=== PATIENT | male | born 1965 | race African-American/Black ===

== ENCOUNTER 2016-11-19 15:15 | Emergency (ER) ==
[2016-11-19] MEDS ORDERED: TORADOL IM ONE (15:47)
[2016-11-19] MEDS ORDERED: CATAPRES PO ONE (15:48)
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
[2016-11-19 16:49] VITALS: BP 110/45
--- NOTE | 2016-11-19 17:18 | EKG Report ---
Test Performed on : 11/19/2016 3:32:26 PM Test Reason : tachycardia Blood Pressure : / mmHG Vent. Rate : 105 BPM Atrial Rate : 105 BPM P-R Int : 158 ms QRS Dur : 098 ms QT Int : 352 ms P-R-T Axes : 066 072 -06 degrees QTc Int : 465 ms Sinus tachycardia. Possible Left atrial enlargement Left ventricular hypertrophy Abnormal QRS-T angle, consider primary T wave abnormality Abnormal ECG When compared with ECG of 26-JAN-2016 06:40, SD interval has decreased Vent. rate has increased BY 59 BPM QT has lengthened Unconfirmed Result
== END 2016-11-19 16:55 | disposition home or self-care (01) ==
LOC: P.ED 15:15
DX: R51 Headache (principal); I10 Essential (primary) hypertension; F17.210 Nicotine dependence, cigarettes, uncomplicated; Z71.6 Tobacco abuse counseling; R94.31 Abnormal electrocardiogram [ECG] [EKG]; Z79.899 Other long term (current) drug therapy; Z79.52 Long term (current) use of systemic steroids
CPT/HCPCS: 93005; 96372; J1885

== ENCOUNTER 2017-05-30 10:04 | Inpatient (IN) ==
[2017-05-30] MEDS ORDERED: APRESOLINE IV ONE (10:51)
[2017-05-30] MEDS ORDERED: ZOFRAN IV PRN (10:54)
[2017-05-30] MEDS ORDERED: TYLENOL PO PRN (10:54)
[2017-05-30 11:04] LABS: INR 1.03; PROTIME 10.8 Seconds (9.2-11.7); PTT 26.2 Seconds (22.0-36.0)
[2017-05-30 11:13] LABS: BASO% 0.3 % (0.0-0.8); EOS# 0.06 X1000 (0.0-0.7); EOS% 0.7 % (0.0-10.0); HEMATOCRIT 34.1 % (42.0-52.0); HEMOGLOBIN 11.5 g/dL (14.0-18.0); IMM GRAN# 0.02 X1000 (0.0-0.04); IMM GRAN% 0.2 % (0.0-0.5); LYMPH% 26.9 % (20.5-51.1); MANUAL DIFF NEEDED? YES; MCH 35.5 PG (27-31); MCHC 33.7 g/dL (33-37); MCV 105.2 FL (81-99); MONO# 0.64 X1000 (0.11-0.59); MONO% 7.2 % (1.7-9.3); MPV 9.2 FL (7.4-10.4); NEUT% 64.7 % (42.2-75.2); PLT 364 X1000 (130-400); RBC 3.24 XMIL (4.7-6.1)
[2017-05-30 11:24] LABS: AGAP 14; BUN 14 mg/dL (8-22); CALCIUM 9.8 mg/dL (8.8-10.2); CHLORIDE 102 mmol/L (98-107); COSMO 281; POTASSIUM 3.3 mmol/L (3.5-5.1); SODIUM 141 mmol/L (136-145); TCO2 25 mmol/L (25-35)
[2017-05-30] MEDS ORDERED: MORPHINE IV ONE (11:31)
[2017-05-30 11:41] LABS: LYMPHS 26 % (21-51); MONO 2 % (1-9)
[2017-05-30 12:10] LABS: HEMOGLOBIN A1C 5.2 % (4.8-6.0)
[2017-05-30 12:28] LABS: URINE CULTURE NEEDED? NO; URINE MICRO REVIEW NEEDED? NO; URINE SOURCE CLEAN CATCH
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
[2017-05-30 12:33] LABS: BILIRUBIN URINE NEGATIVE (NEGATIVE); BLOOD URINE SMALL (NEGATIVE); COLOR STRAW; GLUCOSE URINE NEGATIVE (NEGATIVE); LEUKOCYTES URINE NEGATIVE (NEGATIVE); NITRITE URINE NEGATIVE (NEGATIVE); PROTEIN URINE NEGATIVE (NEGATIVE); SP GRAVITY URINE 1.005; TURBIDITY URINE CLEAR (CLEAR); UR EPITHELIAL CELLS <10 /HPF (<10); URINE BACTERIA NEGATIVE /HPF; URINE RBC <10 /HPF (<10); URINE WBC <10 /HPF (<10); UROBILINOGEN URINE NORMAL (NORMAL)
[2017-05-30] MEDS: NS 1,000 ML IV SCH (12:34)
--- NOTE | 2017-05-30 13:04 | EKG Report ---
Test Performed on : 05/30/2017 11:00:21 AM Test Reason : chest pain Blood Pressure : / mmHG Vent. Rate : 056 BPM Atrial Rate : 056 BPM P-R Int : 194 ms QRS Dur : 104 ms QT Int : 442 ms P-R-T Axes : 063 046 032 degrees QTc Int : 426 ms Sinus bradycardia. Voltage criteria for left ventricular hypertrophy Abnormal ECG When compared with ECG of 11-FEB-2017 15:21, No significant change was found Confirmed by Philipp Cooper MD ([id number]) on 05/30/2017 8:07:23 PM
--- NOTE | 2017-05-30 14:35 | Diag Imaging Result Doc PS360 ---
EXAM: CHEST-2 VIEWS - 05/30/2017 HISTORY: r/o pna TECHNIQUE: AP and lateral chest COMPARISON: 02/11/2017 FINDINGS: Allowing for the AP projection of the frontal view, heart size appears in the upper range of normal. The lungs appear clear. There is no consolidation, pleural effusion, or pneumothorax identified. IMPRESSION: No evidence of acute disease. Electronically signed by London Tamez 05/30/2017 2:32 PM
[2017-05-30] MEDS: CATAPRES PO SCH ×2 (18:13)
[2017-05-30] MEDS: BACTROBAN CREAM TOP SCH ×2 (18:13→18:14)
[2017-05-30] MEDS: MORPHINE IV PRN ×2 (18:16→22:34)
[2017-05-30] MEDS: NORCO-5 PO PRN (19:25)
[2017-05-30] MEDS: NORVASC PO SCH (22:35)
[2017-05-30] MEDS: COREG PO SCH (22:35)
[2017-05-31] MEDS: NORCO-5 PO PRN ×4 (02:08→22:16)
[2017-05-31] MEDS: MORPHINE IV PRN ×3 (02:52→23:07)
[2017-05-31] MEDS: APRESOLINE IV PRN ×3 (02:52→18:03)
[2017-05-31] MEDS: NS 1,000 ML IV SCH (06:34)
[2017-05-31] MEDS: PRILOSEC PO SCH (06:35)
[2017-05-31 06:40] LABS: MANUAL DIFF NEEDED? NO
[2017-05-31 06:42] LABS: BASO% 0.2 % (0.0-0.8); EOS% 1.2 % (0.0-10.0); HEMATOCRIT 33.9 % (42.0-52.0); HEMOGLOBIN 11.5 g/dL (14.0-18.0); LYMPH# 2.81 X1000 (1.2-3.4); LYMPH% 33.2 % (20.5-51.1); MCH 35.5 PG (27-31); MCHC 33.9 g/dL (33-37); MCV 104.6 FL (81-99); MONO# 0.85 X1000 (0.11-0.59); MPV 9.4 FL (7.4-10.4); NEUT% 55.4 % (42.2-75.2); PLT 356 X1000 (130-400); RBC 3.24 XMIL (4.7-6.1)
[2017-05-31 07:00] LABS: AGAP 15; ALBUMIN 3.5 g/dL (3.5-5.0); ALKALINE PHOSPHATASE 70 U/L (32-122); BUN 12 mg/dL (8-22); CALCIUM 9.5 mg/dL (8.8-10.2); CHLORIDE 101 mmol/L (98-107); COSMO 281; GOT 27 U/L (10-34); GPT 47 U/L (10-44); MAGNESIUM 1.7 mg/dL (1.5-2.7); POTASSIUM 3.3 mmol/L (3.5-5.1); SODIUM 141 mmol/L (136-145); TCO2 25 mmol/L (25-35); TOTAL BILIRUBIN 0.38 mg/dL (0.20-1.00); TOTAL PROTEIN 8.3 g/dL (6.3-8.3)
--- NOTE | 2017-05-31 09:09 | Diag Imaging Result Doc PS360 ---
EXAM: CT ANGIOGRAM/AORTA W/RUNOFF HISTORY: peripheral vascular disease TECHNIQUE: CT angiography of the abdomen, pelvis with runoff and 3-D MIPS with low radiation dose applied. COMMENT: There is no evidence of acute disease in the visualized portion of the chest. There is mild constipation. There are no abnormal fluid collections in the abdomen or pelvis. There is no evidence of bowel obstruction or appendicitis. There are no gallstones. There is no evidence of hydronephrosis. There is extensive atherosclerotic change in the abdominal aorta and iliac arteries. There is no evidence of abdominal aortic aneurysm. The maximum AP diameter of the abdominal aorta is 2.4 cm. The mesenteric arteries are patent. There may be stenosis of the superior mesenteric artery several centimeters from the ostium, however this this appearance may be due to motion artifact. There is irregular plaque formation in both external iliac arteries without definite significant stenosis. Both superficial femoral and popliteal arteries are patent. Contrast opacification of the smaller vessels in the calves is somewhat suboptimal however there is no apparent occlusion on either side above the level of the ankle. IMPRESSION: Diffuse atheromatous disease without evidence of significant stenosis. Electronically signed by Bryan Brennan 05/31/2017 9:07 AM
[2017-05-31] MEDS: CATAPRES PO SCH ×3 (09:10→17:59)
[2017-05-31] MEDS: COREG PO SCH ×2 (09:10→22:16)
[2017-05-31] MEDS: PRINIVIL PO SCH (09:10)
[2017-05-31] MEDS: BACTROBAN CREAM TOP SCH ×3 (09:14→17:59)
[2017-05-31] MEDS ORDERED: KLOR-CON PO ONE (11:17)
[2017-05-31] MEDS: LOVENOX SUBQ SCH (12:11)
[2017-05-31] MEDS: NICODERM PATCH TD SCH (13:22)
--- NOTE | 2017-05-31 13:31 | PROGRESS NOTE ---
DATE: 05/31/2017 SUBJECTIVE: Patient reported still having pain in the right 5th toe. Denies any fever or chills. OBJECTIVE: Vital Signs: Temperature 98.6 degrees, heart rate 95, respiratory 16, blood pressure 156/89, O2 saturation 99% on room air. General Examination: This is a 51-year-old male, lying in bed, in no acute distress. HEENT: Head is normocephalic, atraumatic. Neck: Supple. No JVD noted. No carotid bruits. Cardiovascular: S1, S2 heard. No murmurs, gallops, or rubs. Regular rate and rhythm. Respiratory: Clear bilaterally to auscultation. No work of breathing or using accessory muscles. Abdomen: Soft, nontender to palpation. Bowel sounds present. No organomegaly. Extremities: There is an ischemic right 5th toe. There is also a posterior tibial pulse there. In the left lower extremities pulse is noted in the posterior tibial area. Dorsalis pulse also present. No swelling. No clubbing. Neurological: Patient alert and oriented x3. Moves 4 extremities. LABORATORY DATA: CBC is unremarkable. BMP unremarkable except potassium 3.3 with normal troponins and ProBNP to 41. ASSESSMENT AND PLAN: 1. Ischemic right 5th toe with necrosis and dry gangrene. Dr. Quintero is following this patient. They have ordered a CTA with which basically did not show any critical stenosis. At this point, we are going to continue with Bactroban topically and will see what Dr. Quintero has to say regarding the management of this patient. 2. Hypertension. The blood pressure has been really high and that was because the patient was not taking his medication. All of them have been restarted so by now blood pressure is definitely much better with 140s to 150s systolic blood pressure. We will continue with the same management. 3. GI prophylaxis with Protonix. 4. Deep vein thrombosis prophylaxis with Lovenox. cc: Mohit Ponce MD
[2017-05-31] MEDS: NORVASC PO SCH (22:16)
[2017-06-01] MEDS: NORCO-5 PO PRN ×5 (03:46→21:47)
[2017-06-01] MEDS: MORPHINE IV PRN ×4 (03:46→18:22)
[2017-06-01 06:14] LABS: BASO% 0.1 % (0.0-0.8); EOS# 0.05 X1000 (0.0-0.7); EOS% 0.6 % (0.0-10.0); HEMATOCRIT 32.7 % (42.0-52.0); HEMOGLOBIN 10.7 g/dL (14.0-18.0); LYMPH# 2.59 X1000 (1.2-3.4); LYMPH% 32.1 % (20.5-51.1); MANUAL DIFF NEEDED? YES; MCH 34.6 PG (27-31); MCHC 32.7 g/dL (33-37); MCV 105.8 FL (81-99); MONO# 0.79 X1000 (0.11-0.59); MONO% 9.8 % (1.7-9.3); MPV 9.2 FL (7.4-10.4); NEUT% 57.4 % (42.2-75.2); PLT 339 X1000 (130-400); RBC 3.09 XMIL (4.7-6.1)
[2017-06-01] MEDS: PRILOSEC PO SCH (06:20)
[2017-06-01 06:55] LABS: AGAP 16; BUN 16 mg/dL (8-22); CALCIUM 8.9 mg/dL (8.8-10.2); CHLORIDE 102 mmol/L (98-107); COSMO 282; POTASSIUM 3.7 mmol/L (3.5-5.1); SODIUM 141 mmol/L (136-145); TCO2 23 mmol/L (25-35)
[2017-06-01 07:00] LABS: LYMPHS 32 % (21-51); MONO 8 % (1-9)
[2017-06-01] MEDS: CATAPRES PO SCH ×3 (08:21→17:33)
[2017-06-01] MEDS: COREG PO SCH ×2 (08:21→21:21)
[2017-06-01] MEDS: PRINIVIL PO SCH (08:21)
--- NOTE | 2017-06-01 09:14 | PROGRESS NOTE ---
DATE: 05/31/2017 SUBJECTIVE: He is sleeping this morning, but no events per the nurses overnight. OBJECTIVE: No fevers. No tachycardia. Blood pressure remains high at 193/81, but is down to as low as 152 overnight. His right foot has a dressing in place with no cellulitis extending up his foot, and he is sleeping comfortably. LABORATORY DATA: White count is 8, hematocrit 33, creatinine 0.9. Troponins have been negative x2. Albumin 3.5. BNP was 241. ASSESSMENT AND PLAN: This is a 51-year-old male with right lower extremity peripheral vascular disease. We will obtain a CT angiogram today to evaluate for reversible lesion here and what he needs going forward. He does have dry necrosis of his right 5th toe, with no signs of infection and severe claudications, if not ischemic rest pain at times. Continue to follow along and make surgical plans after his CT angiogram going forward. This may be performed this admission versus schedule as an outpatient. Mostly depending on patient's preference. cc: Antonio Quintero MD
[2017-06-01] MEDS: NICODERM PATCH TD SCH (09:51)
[2017-06-01] MEDS: BACTROBAN CREAM TOP SCH ×3 (09:52→17:09)
[2017-06-01] MEDS: LOVENOX SUBQ SCH (10:13)
--- NOTE | 2017-06-01 11:04 | PROGRESS NOTE ---
DATE: 06/01/2017 SUBJECTIVE: Pain is mostly in his toenail, no more leg pain. Blood pressure had been better controlled. OBJECTIVE: Vital signs: No fevers. Temp 98.3 degrees, pulse 64, blood pressure 154/74, oxygen saturation 100% on room air. General: He is alert, no acute distress. Right foot: Warm, stable, dry. Necrosis of the right fifth digit, and no cellulitis or purulence. DIAGNOSTIC DATA: White count is 8, hematocrit 32. Creatinine is 1.1. A CT angiogram showed some mild atherosclerotic changes, but no flow-limiting lesion with 3 vessel runoff to his right foot. No explanation based on this study for his low CRYSTAL on that side. ASSESSMENT AND PLAN: A 51-year-old male with dry necrosis of the 5th toe and peripheral vascular disease. CT angiogram was relatively unrevealing. We will continue wound care for now and hydration. Will plan for possible angiography with percutaneous intervention in the near future versus electively as an outpatient depending on how his lower-extremity pain goes. In the meantime, we will hydrate with the CT angiogram yesterday for renal protection, make further disposition is pending really his symptoms. cc: Antonio Quintero MD
--- NOTE | 2017-06-01 16:45 | PROGRESS NOTE ---
DATE: 06/01/2017 SUBJECTIVE: The patient reports he is still having some pain that is somewhat well controlled with pain medication that he is getting here. He denies any fever or chills, palpitation or chest pain. OBJECTIVE: Vital Signs: Temperature is 98.4 degrees, heart rate 65, respiratory rate 18, blood pressure 157/72, O2 saturation 98% on room air. General Examination: This is a 51-year-old male, lying in bed, in no acute distress. HEENT: Head is normocephalic, atraumatic. Neck: Supple. No JVD noted. No carotid bruits. Cardiovascular: S1, S2 heard. No murmurs, gallops, or rubs. Regular rate and rhythm. Respiratory: Clear bilaterally to auscultation. No work of breathing or using accessory muscles. Abdomen: Soft, nontender to palpation. Bowel sounds present. No organomegaly. Extremities: No clubbing, cyanosis, or edema. There is an ischemic right 5th toe with a posterior tibial pulse there in the left lower extremity is noted, also pulse over there. Neurological: Patient is alert and oriented x3. Moves 4 extremities. LABORATORY DATA: Reviewed. ASSESSMENT AND PLAN: 1. Ischemic right 5th toe with necrosis and dry gangrene. Dr. Quintero is following this patient. He had ordered a CTA with aorta with run off which basically was unremarkable. At this time Wound Care has been consulted. In his notes from today Dr. Quintero mentioned the possibility to do procedure inpatient or outpatient. At this point, apparently as per the patient and the nurses, he is planning to do other tests or have a second opinion about this patient. As we mentioned before, the pain, its control is not completely good. It is somewhat controlled. We are going to continue with the same management and will see what Dr. Quintero has to say. If he is not planning to do any procedure here as an inpatient, we will send him home. 2. Hypertension. Blood pressure is definitely much better controlled. We will continue with the same management. 3. Gastrointestinal prophylaxis with Protonix. 4. Deep vein thrombosis prophylaxis with Lovenox. cc: Mohit Ponce MD
[2017-06-01] MEDS: NORVASC PO SCH (21:21)
[2017-06-02] MEDS: MORPHINE IV PRN ×2 (01:12→08:57)
[2017-06-02] MEDS: NORCO-5 PO PRN ×2 (02:50→10:58)
[2017-06-02 04:11] VITALS: BP 155/70
[2017-06-02] MEDS: PRILOSEC PO SCH (06:07)
[2017-06-02 07:12] LABS: AGAP 12; BUN 20 mg/dL (8-22); CALCIUM 9.4 mg/dL (8.8-10.2); CHLORIDE 104 mmol/L (98-107); COSMO 284; POTASSIUM 4.2 mmol/L (3.5-5.1); SODIUM 141 mmol/L (136-145); TCO2 25 mmol/L (25-35)
[2017-06-02] MEDS: COREG PO SCH (09:00)
[2017-06-02] MEDS: CATAPRES PO SCH (09:00)
[2017-06-02] MEDS: PRINIVIL PO SCH (09:00)
[2017-06-02] MEDS: BACTROBAN CREAM TOP SCH (09:36)
[2017-06-02] MEDS: NICODERM PATCH TD SCH (09:36)
[2017-06-02] MEDS: LOVENOX SUBQ SCH (11:25)
--- NOTE | 2017-06-03 09:05 | DISCHARGE SUMMARY ---
ADMISSION DATE: 05/30/2017 DISCHARGE DATE: 06/02/2017 CONSULTATIONS: Dr. Kenyon Quintero with general surgery. PERTINENT PROCEDURES: 1. Aorta with runoff CTA showed diffuse atheromatous disease without evidence of significant stenosis. 2. Chest x-ray showed no evidence of acute disease. DISCHARGE DIAGNOSES: 1. Ischemic right fifth toe with necrosis and dry gangrene, evaluated by Dr. Kenyon Quintero. CTA was relatively unrevealing. He will continue with wound care for now. 2. Hypertension, improved. Continue the same medications. HOSPITAL COURSE: Mr. Garcia is a 51-year-old male, primary care physician is Dr. Shukri Ballard, carries a past medical history of hypertension, who states that 2 months ago he hit his right 5th toe on a dresser, it never healed. Workup by Dr. Quintero revealed that he had some ischemia in that leg. He currently complained on admission pain 10/10. He had trace dorsal pedalis pulses, 1+ in the posterior tibial. The foot and leg were warm with no obvious swelling. The right pinkie toe was ischemic and dry. The patient was admitted and given IV fluid hydration, to receive a CTA soon. On admission his blood pressure was systolic in the 200s. He was placed on home medications as well as p.r.n. hydralazine and add clonidine t.i.d. and hold for systolic less than 130s. His CTA was relatively unrevealing. Per Dr. Quintero, will continue with wound care and plan for possible angio with percutaneous intervention in the near future versus electively as an outpatient, depending on how his lower extremity pain goes. He was hydrated another day after his CTA. He was given education on his wound care, to pain that area with a Betadine and add a small piece of foam between the toes to keep the area dry and cover with Kerlix. VITAL SIGNS AT TIME OF DISCHARGE: Temperature is 98.5 degrees, heart rate 58, respirations 16, blood pressure was 155/70, O2 is 99% on room air. DISCHARGE DIET: Healthy heart. DISCHARGE MEDICATIONS: Per Dr. Ponce: 1. Norvasc 10 mg p.o. at bedtime. 2. Coreg 6.25 mg p.o. daily. 3. Haworth 10 one tablet p.o. q.6 hours p.r.n. 4. Lisinopril 20 mg p.o. daily. FOLLOW-UP: Mr. Garcia is being discharged home to continue wound care as instructed. He will follow up with Dr. Kenyon Quintero on 06/09/2017 at 0930. He can return to the ED for any worsening of symptoms. Dictated by RUFINO Davis for Mohit Ponce MD Addendum: Patient seen and examined. Agree with INSURANCE ACCOUNT REPRESENTATIVE note. It reflects my assessment and plan. Patient admitted for an ulcer that was considered to be ischemic. An aorta runoff CT was done which basically did no show any critical aortic stenosis. Talked with Dr. Quintero from Surgery he plans to see him in the office for further workup. Patient foot pain is controlled with medications. Patient stable and being discharged in stable condition. cc: MD Shukri Marley MD [facility]
== END 2017-06-02 11:55 | disposition home or self-care (01) ==
LOC: DIRADM 10:04 → SUATTDRO 10:04 → 4N 10:20
PROVIDERS: ATTEND Internal Medicine

== ENCOUNTER 2019-08-12 02:45 | Inpatient (IN) ==
--- NOTE | 2019-08-12 03:12 | PROVIDER DOCUMENTATION ---
HPI-Abdominal Pain/GI Problem - General Chief Complaint: Abdominal Pain Stated Complaint: BACK PAIN Time Seen by Provider: 08/12/19 02:58 Source: patient, family Allergies/Adverse Reactions: Patient Allergies Allergy/AdvReac Type Severity Reaction Status Date / Time [facility] Allergy Unknown Verified 04/24/19 11:50 lisinopril AdvReac Intermediate cough Verified 04/24/19 11:50 Home Medications: Home Medication List Medication Instructions Recorded Confirmed Last Taken Type Amlodipine [Norvasc] 10 mg PO DAILY 04/24/19 04/24/19 04/23/19 History Aspirin EC 81 mg PO DAILY 04/24/19 04/24/19 04/23/19 History Hydralazine HCl 100 mg PO BID 04/24/19 04/24/19 04/23/19 History Metoprolol Succinate E.r. [Toprol 50 mg PO DAILY 04/24/19 04/24/19 04/23/19 History Xl] Oxycodone/APAP 5 mg/325 mg 1 ea PO Q4H PRN PRN #12 tab 04/24/19 Unknown Rx [Percocet-5] Spironolactone 25 mg PO DAILY 04/24/19 04/24/19 04/23/19 History - History of Present Illness-ABD Nature of Presenting Problems: Pt is a 53 y/o male with PMH of MM who presents with constipation and abd pain. As per the pt has not had a BM since Tuesday and the painhas been pt=rogressively getting worse. He has been throwing up since yesterday morning. Appetite is decreased. Denies any urinary symptoms or fever or chills. Has been on multiple pain meds. Pt has tried laxatives and stool softners and nothing has helped much. Review of Systems - Adult - REVIEW OF SYSTEMS - ADULT Constitutional: denies: no symptoms reported Eyes: denies: no symptoms reported Ears, Nose, Mouth & Throat: denies: no symptoms reported Cardiovascular: denies: no symptoms reported Respiratory: denies: no symptoms reported Gastrointestinal: reports: see HPI Genitourinary: denies: no symptoms reported Musculoskeletal: denies: no symptoms reported Integumentary: denies: no symptoms reported Neurological: denies: no symptoms reported Psychiatric: denies: no symptoms reported Endocrine: denies: no symptoms reported Hematologic/Lymphatic: denies: no symptoms reported Allergic/Immunologic: denies: no symptoms reported Past History - Adult - PAST MEDICAL HISTORY-ADULT Review of Records: reports: Old Records Reviewed, Nursing Assessment Review, Medications Reviewed, Social history reviewed & non-contributory. 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 Psychiatric: reports: denies history Endocrine/Immune: reports: denies history Other Conditions: reports: denies history - PRIOR SURGERIES/PROCEDURES Surgical/Procedure History: reports: orthopedic (extremity) (arm surgery), other (ablation) - IMMUNIZATION STATUS Childhood Immunizations: See Nurse Assessment Flu Vaccine: See Nurse Assessment - FAMILY HISTORY Family History: reviewed, not pertinent Physical Exam-General - PHYSICAL EXAM-ADULT Initial Vital Signs Reviewed: Yes - CONSTITUTIONAL General Appearance: appears well, alert, no apparent distress - EYES Eyes: PERRL/EOMI - HEAD, EARS, NOSE, MOUTH & THROAT HENMT: normocephalic/atraumatic, moist mucous membranes, normal ENT inspection, pharynx normal - NECK Neck: supple - RESPIRATORY Respiratory: lungs clear, no pleuratic chest pain, no respiratory distress, no accessory muscle use - CARDIOVASCULAR Cardiovascular: regular rate, rhythm, no murmur - GASTROINTESTINAL (ABDOMEN) Abdominal Exam: soft, tenderness (generalized). negative: guarding, rigid - MUSCULOSKELETAL Back Exam: normal inspection, no CVA tenderness, no vertebral tenderness Extremity: no pedal edema - SKIN Integumentary: normal color, warm/dry - NEUROLOGIC Neurologic: grossly normal - PSYCHIATRIC Psych/Mental Status: normal mood/affect, normal thought content, normal thought process, oriented x 3 Progress - PLAN OF CARE/RESULTS Progress/Plan/Lab Results: Vital Signs - 8 hr 08/12/19 02:51 Temperature 98.1 F Pulse Rate 90 Respiratory Rate 16 Blood Pressure 144/84 O2 Sat by Pulse Oximetry 99 Orders Category Date Time Status CT ABD/PELVIS W/IV CONT ONLY [CT] Stat Exams 08/12/19 03:08 Ordered CBC WITH ELECTRONIC DIFF [HEME] Stat Lab 08/12/19 03:08 Uncollected COMPREHENSIVE METABOLIC PANEL [CHEM] Stat Lab 08/12/19 03:08 Uncollected LIPASE [CHEM] Stat Lab 08/12/19 03:08 Uncollected UA NIMS W/REFLEX CULT [URINALYSIS] Stat Lab 08/12/19 03:09 Uncollected Result Diagrams: 08/12/19 03:20 08/12/19 03:20 - CONSULTS/PCP/HOSPITALIST Notification #1 *Consult/PCP/Hospitalist*: d/w Dr Street (surgery) Time Discussed: 05:14 Consult Disposition: Admit (recommeded admission to the hospitalist, he will be on consult.) #2 Consult: d/w Dr Aguila Time Discussed: 05:20 Consult Disposition: Admit Departure - Departure Date of Disposition Decision: 08/12/19 Time of Disposition Decision: 05:16 DIAGNOSIS: Intestinal obstruction, Abdominal pain, UTI (urinary tract infection) Disposition: ADMITTED INPATIENT 09 Certified Medical Emergency: Emergent Condition: Stable Referrals and Follow-Ups: Levon Arnold CRNP [Primary Care Provider] - - Critical Care Note This patient required my direct & personal management of CC.: No Attestation - Physician/ KIMBERLY Attestation Patient care was provided by Advanced Practice Provider:: No The physician spent face to face time with patient:: Yes Advanced Practice Provider documentation review:: Supervising physician onsite and consulted in the evaluation and care of this patient. The physician did have a face to face encounter with the patient.
[2019-08-12 03:35] LABS: URINE SOURCE CLEAN CATCH
[2019-08-12 03:46] LABS: BILIRUBIN URINE NEGATIVE (NEGATIVE); BLOOD URINE LARGE (NEGATIVE); COLOR YELLOW; GLUCOSE URINE NEGATIVE (NEGATIVE); KETONE URINE NEGATIVE (NEGATIVE); LEUKOCYTES URINE SMALL (NEGATIVE); NITRITE URINE POSITIVE (NEGATIVE); PROTEIN URINE 200 mg/dL (NEGATIVE); SP GRAVITY URINE 1.019; TURBIDITY URINE HAZY (CLEAR); UR EPITHELIAL CELLS <10 /HPF (<10); URINE BACTERIA 4+ /HPF; URINE RBC TNTC /HPF (<10); URINE WBC TNTC /HPF (<10); UROBILINOGEN URINE 2 mg/dL (NORMAL)
[2019-08-12 03:50] LABS: BASO# 0.02 X1000 (0.0-0.2); LYMPH% 7.8 % (20.5-51.1); MCH 32.5 PG (27-31); MCHC 31.9 g/dL (33-37); MCV 101.7 FL (81-99); MONO# 1.41 X1000 (0.11-0.59); MONO% 13.7 % (1.7-9.3); NEUT# 7.85 X1000 (1.4-6.5); NEUT% 76.1 % (42.2-75.2)
[2019-08-12 03:51] LABS: BASO% 0.2 % (0.0-0.8); EOS# 0.02 X1000 (0.0-0.7); EOS% 0.2 % (0.0-10.0); HEMATOCRIT 30.7 % (42.0-52.0); HEMOGLOBIN 9.8 g/dL (14.0-18.0); IMM GRAN# 0.21 X1000 (0.0-0.04); RBC 3.02 XMIL (4.7-6.1); RDW 15.7 % (11.5-14.5); WBC 10.31 X1000 (4.8-10.8)
[2019-08-12 03:59] LABS: PLT 37 X1000 (130-400)
[2019-08-12 04:04] LABS: AGAP 12; ALBUMIN 3.8 g/dL (3.5-5.0); ALKALINE PHOSPHATASE 85 U/L (32-122); BUN 11 mg/dL (8-22); CALCIUM 9.1 mg/dL (8.8-10.2); CHLORIDE 102 mmol/L (98-107); COSMO 276; ESTIMATED GFR > 60; GLUCOSE 110 mg/dL (70-104); GOT 14 U/L (10-34); GPT 13 U/L (10-44); LIPASE 22 U/L (13-60); POTASSIUM 3.3 mmol/L (3.5-5.1); SODIUM 138 mmol/L (136-145); TCO2 24 mmol/L (25-35); TOTAL PROTEIN 6.9 g/dL (6.3-8.3)
[2019-08-12] MEDS ORDERED: ROCEPHIN 1 GM in NS 50 ML IV ONE (05:19)
--- NOTE | 2019-08-12 07:48 | Diag Imaging Result Doc PS360 ---
EXAM: CHEST/ABD TUBE PLACEMENT INDICATION: ng placement TECHNIQUE: 2 views COMPARISON: 04/24/2019 FINDINGS: There is a newly placed NG tube. The tip projects well below the diaphragm and is assumed to be in the lumen of the stomach in the expected position. There has been interval placement of thoracic spinal rods. The lungs are grossly clear. There is no discrete pleural fluid collection or pneumothorax. The cardiomediastinal silhouette and central vasculature are grossly unremarkable. IMPRESSION: NG tube in expected position as described. No evidence of acute chest pathology. Electronically signed by Delvin Lei 08/12/2019 7:45 AM
[2019-08-12] MEDS: NS 1,000 ML IV SCH ×2 (08:52→18:34)
[2019-08-12] MEDS: POTASSIUM CHLORIDE 20 MEQ/SWI 20 MEQ/100 ML IVPB IV SCH ×2 (08:52→11:37)
--- NOTE | 2019-08-12 10:44 | Diag Imaging Result Doc PS360 ---
EXAM: CT ABDOMEN/PELVIS W/O CONTRAST INDICATION: abd pain TECHNIQUE: This exam was performed using automated exposure control, adjustment of mA or kV according to patient size, and/or use of iterative reconstruction technique. COMPARISON: None. FINDINGS: There is a 7 mm noncalcified nodule in the lingula near the left lung base. It is indeterminate but may represent a noncalcified granuloma. Consider follow-up based on Fleischner Society criteria. The gallbladder, liver, spleen, and pancreas are grossly unremarkable. There is a small nodule associated with the left adrenal gland with a density highly compatible with an adenoma. The kidneys and urinary bladder are grossly unremarkable. There are multiple distended loops of small bowel containing gas and fluid indicating a high-grade obstruction. The exact transition point cannot clearly be identified. However, it is probably distal. The colon is decompressed. The remainder of the GI tract is grossly unremarkable. No free abdominal gas or significant free fluid is identified. There is chronic spondylolysis at L5 with grade 1 anterolisthesis of L5 on S1. There are multiple small lytic lesions seen throughout the visualized spine as well as the pelvis and hips in keeping with known multiple myeloma. IMPRESSION: 1.Multiple distended loops of small bowel suggesting a high-grade mechanical obstruction. The exact transition point is not clearly identified. However, it is probably at the distal small bowel. 2.Multiple lytic bony lesions consistent with known multiple myeloma. 3.Subcentimeter noncalcified nodule in the lingula that is nonspecific. Consider follow-up based on Fleischner Society criteria. Electronically signed by Delvin Lei 08/12/2019 10:41 AM
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
[2019-08-12] MEDS ORDERED: ZOFRAN IV PRN (11:54)
[2019-08-12 12:08] LABS: BASO# 0.02 X1000 (0.0-0.2); BASO% 0.2 % (0.0-0.8); EOS# 0.01 X1000 (0.0-0.7); EOS% 0.1 % (0.0-10.0); HEMATOCRIT 29.7 % (42.0-52.0); HEMOGLOBIN 9.7 g/dL (14.0-18.0); IMM GRAN# 0.14 X1000 (0.0-0.04); IMM GRAN% 1.4 % (0.0-0.5); LYMPH# 0.66 X1000 (1.2-3.4); LYMPH% 6.7 % (20.5-51.1); MCH 33.1 PG (27-31); MCHC 32.7 g/dL (33-37); MCV 101.4 FL (81-99); MONO# 1.33 X1000 (0.11-0.59); MONO% 13.6 % (1.7-9.3); NEUT# 7.64 X1000 (1.4-6.5); PLT 31 X1000 (130-400); RBC 2.93 XMIL (4.7-6.1); RDW 15.7 % (11.5-14.5)
[2019-08-12 12:51] LABS: INR 1.11; PROTIME 14.5 Seconds (11.0-16.0)
[2019-08-12 13:13] LABS: BANDS 6 % (0-1); LARGE PLATELETS 1+; LYMPHS 10 % (21-51); MONO 2 % (1-9); SEGS 80 % (42-75)
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
[2019-08-12] MEDS ORDERED: SODIUM CHLORIDE 0.9% INJ PRN (15:44)
--- NOTE | 2019-08-12 17:56 | EKG Report ---
Test Performed on : 08/12/2019 3:55:40 PM Test Reason : hx of afib Blood Pressure : / mmHG Vent. Rate : 074 BPM Atrial Rate : 074 BPM P-R Int : 158 ms QRS Dur : 110 ms QT Int : 408 ms P-R-T Axes : 047 023 009 degrees QTc Int : 452 ms Normal sinus rhythm. Voltage criteria for left ventricular hypertrophy Abnormal ECG When compared with ECG of 25-OCT-2018 17:31, Vent. rate has increased BY 27 BPM Confirmed by Pasha KNOX, P.J.M ([id number]) on 08/13/2019 6:32:26 PM
--- NOTE | 2019-08-12 19:44 | HEMO/ONC CONSULTATION ---
DATE: 08/12/2019 REASON FOR CONSULTATION: This is a known patient of ours for the management of multiple myeloma and evaluation of thrombocytopenia. HISTORY OF PRESENT ILLNESS: Mr. Garcia is a known patient of ours for whom we treat in the clinic for multiple myeloma. The patient initially presented to our office on 04/24/2019. He was diagnosed with cord compression and sent immediately to [facility] ER. There, MRI revealed a large enhancing mass at T7 vertebral body causing significant cord compression. Upon further evaluation, he was found to have diffuse bone metastasis. He had eventual laminectomy for cord compression and radiation. The patient was diagnosed with multiple myeloma and is currently in office receiving treatment with Revlimid and Velcade both started on 07/10/2019. His last Velcade injection in the office was 08/10/2019. He is taking Revlimid p.o. at home 2 weeks on, 1 week off. He is also receiving Xgeva for bone metastasis every 28 days. His last dose was on 07/17/2019. The patient also received his flu shot in our clinic on 07/31/2019. The patient's initial SPEP was 2.1 and it has come down nicely with treatment to 1.4. The patient was in the clinic on Tuesday with complaint of constipation since Tuesday. At that time, he was instructed to take MiraLAX 1 to 2 times a day and we gave him our constipation protocol. He and his daughter verbalized understanding. The patient states on Tuesday, his abdominal pain began to worsen and he started with nausea and vomiting Tuesday night. The pain nausea and vomiting worsened over the weekend until he presented to the ER this morning, 08/12/2019. Upon evaluation in the ER, he was found to have a platelet count of 37,000. His potassium was 3.3, and his urinalysis was positive for nitrites, small leukocytes, and 4+ bacteria. CT of the abdomen and pelvis showed multiple distended loops of bowel suggesting high- grade mechanical obstruction as well as multiple lytic bony lesions consistent with known multiple myeloma. The ER placed an NG tube in the patient, which has been confirmed in correct position by x-ray as well as a Faye catheter. The patient states that he is passing small amounts of gas. He describes his abdominal pain as cramping and intermittent. He also states that he does have tingling in his feet, which has remained constant, so we have placed him on Neurontin for this. PAST MEDICAL HISTORY: Includes hypertension and multiple myeloma. PAST SURGICAL HISTORY: None. SOCIAL HISTORY: The patient is a smoker for the past 20 years. He denies alcohol or illicit drug use. ALLERGIES: Lisinopril. HOME MEDICATIONS: Hydralazine, aspirin, metoprolol, amlodipine, spironolactone. REVIEW OF SYSTEMS: Pertinent positives are noted in the HPI. All other review of systems are negative.Vital Signs: Temperature 98.6 degrees, pulse rate 80, respiratory rate 20, blood pressure 175/84, O2 saturation 98% on room air. Pain is 0/10. PHYSICAL EXAM: General: The patient is in no acute distress. HEENT: Sclerae is anicteric. PERRLA. Oral mucosa is normal. Cardiovascular: Normal S1, S2. Heart rate and rhythm regular. Respiratory: Lung sounds are clear to auscultation. Normal respiratory effort. Gastrointestinal: Abdomen is slightly distended, nontender. Hypoactive bowel sounds. Soft. Neurological: Awake, alert, oriented x3. Able to move all 4 extremities. Extremities: No lower extremity edema noted. LABORATORY: WBCs 9.8, hemoglobin 9.7, hematocrit 29.7, platelet count 31,000, potassium 3.3, creatinine 1.0. RADIOLOGY: Abdomen and pelvis CT shows: 1. Multiple distended loops of small bowel suggesting a high-grade mechanical obstruction. The exact transition point is not clearly identified. 2. Multiple lytic bony lesions consistent with known multiple myeloma. 3. A subcentimeter noncalcified nodule in the lingula that is nonspecific. ASSESSMENT: 1. History of cord compression. The patient is status post laminectomy and radiation. Continue to monitor him for cord compression symptoms. 2. Multiple myeloma. The patient is currently on treatment with Velcade and Revlimid. 3. Thrombocytopenia. We continue to evaluate the patient's labs. Please transfuse the patient for a platelet count of 10,000 to 20,000 or if he is bleeding. This may be related to his Chemo/meds. 4. Possible small bowel obstruction. Please consult Gastroenterology and Surgery for their evaluation. Dictated by RUFINO Bloutn for Timothy Alexander MD cc: Timothy Alexander MD [facility]
[2019-08-12] MEDS: LABETALOL IV PRN (23:34)
[2019-08-13] MEDS ORDERED: LABETALOL IV ONE (00:52)
[2019-08-13] MEDS ORDERED: APRESOLINE IV ONE (00:53)
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
[2019-08-13] MEDS ORDERED: ROCEPHIN 1 GM in NS 50 ML IV SCH (06:00)
[2019-08-13 07:50] LABS: AGAP 16; BASO# 0.02 X1000 (0.0-0.2); BASO% 0.2 % (0.0-0.8); BUN 13 mg/dL (8-22); CALCIUM 8.3 mg/dL (8.8-10.2); CHLORIDE 108 mmol/L (98-107); COSMO 294; CREATININE 0.9 mg/dL (0.7-1.2); ESTIMATED GFR > 60; GLUCOSE 95 mg/dL (70-104); HEMATOCRIT 30.1 % (42.0-52.0); HEMOGLOBIN 9.6 g/dL (14.0-18.0); IMM GRAN# 0.14 X1000 (0.0-0.04); IMM GRAN% 1.2 % (0.0-0.5); LYMPH# 0.76 X1000 (1.2-3.4); LYMPH% 6.6 % (20.5-51.1); MAGNESIUM 2.3 mg/dL (1.5-2.7); MCH 32.4 PG (27-31); MCHC 31.9 g/dL (33-37); MCV 101.7 FL (81-99); MONO# 1.13 X1000 (0.11-0.59); MONO% 9.7 % (1.7-9.3); NEUT# 9.55 X1000 (1.4-6.5); NEUT% 82.3 % (42.2-75.2); PLT 29 X1000 (130-400); POTASSIUM 3.2 mmol/L (3.5-5.1); RBC 2.96 XMIL (4.7-6.1); SODIUM 148 mmol/L (136-145); TCO2 24 mmol/L (25-35)
[2019-08-13 08:24] LABS: IRON SATURATION 28 %; TIBC 261 ug/dL; TOTAL IRON 73 ug/dL (53-167); UNBOUND IRON 188 ug/dL (112-346)
[2019-08-13 08:25] LABS: FERRITIN 566 ng/mL (30-400)
[2019-08-13 08:26] LABS: BANDS 7 % (0-1); LYMPHS 7 % (21-51); MONO 5 % (1-9); SEGS 81 % (42-75)
[2019-08-13] MEDS: LABETALOL IV PRN ×2 (08:27→12:25)
--- NOTE | 2019-08-13 10:14 | Diag Imaging Result Doc PS360 ---
EXAM: FLAT/UPRIGHT ABD/1 VIEW CHEST 08/13/2019 HISTORY: sbo TECHNIQUE: Flat and upright abdomen with PA chest COMMENT: There is an NG tube with its tip in the stomach. There is some colonic gas in the upper abdomen and to a lesser extent in the rectum. The small bowel is not distended. There is no evidence organomegaly or mass. The lungs are clear and the heart and pulmonary vascularity are within normal limits. IMPRESSION: Nonspecific abdomen. No evidence of small bowel obstruction. Electronically signed by Bryan Brennan 08/13/2019 10:10 AM
[2019-08-13] MEDS: PHENERGAN IV PRN ×2 (10:18→19:53)
[2019-08-13] MEDS: MORPHINE IV PRN ×2 (10:18→19:53)
[2019-08-13] MEDS: NS 1,000 ML IV SCH ×2 (10:18→10:37)
[2019-08-13] MEDS: SODIUM CHLORIDE 0.9% INJ SCH (13:20)
[2019-08-13] MEDS: PROTONIX IV SCH (13:21)
[2019-08-13] MEDS: POTASSIUM CHLORIDE 20 MEQ/SWI 20 MEQ/100 ML IVPB IV SCH ×2 (13:21→15:46)
[2019-08-13] MEDS: NORVASC PO SCH (14:12)
[2019-08-13] MEDS: TOPROL XL PO SCH (14:12)
[2019-08-13] MEDS: 1/2 NS 1,000 ML IV SCH (14:18)
--- NOTE | 2019-08-13 14:32 | PROGRESS NOTE ---
DATE: 08/13/2019 INTERVAL HISTORY: The patient states that he is feeling better. No longer nauseous. However, he does not have any abdominal pain. He is hungry and wants to eat. He states that he has been passing gas. He has had hypertension, hypokalemia. We discussed about clamping nasogastric tube. SUBJECTIVE: He denies any abdominal pain or any more nausea and vomiting. VITALS: Temperature 98.2 degrees, pulse 70, respiratory 18, blood pressure 190/90, saturating 94% on room air. PHYSICAL EXAMINATION: HEENT: He has nasogastric tube which has some blood in it, and most of it has greenish bile. Oral cavity is otherwise moist. Lungs: Air entry bilaterally equal. No wheeze, rhonchi, crackles. Cardiovascular: S1, S2 normal. No murmur or gallop. Abdomen: Soft, nontender. He does have some active bowel sounds. He is passing gas. Neurologic: He is alert and oriented x3. LABS: Suggestive of mild leukocytosis, macrocytic anemia, thrombocytopenia. He does have hypernatremia, hyperchloremia, hypokalemia, normal kidney function, elevated ferritin, normal creatinine. X-RAYS: Abdominal x-ray is nonspecific without any evidence of small-bowel obstruction. ASSESSMENT AND PLAN: 1. Small-bowel obstruction without prior history of abdominal surgery. He previously did have history of multiple myeloma and a mass on the back which was compressing spinal cord. 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 However, CT scan of the abdomen and pelvis did not detect any such mass inside the abdomen, which could cause small-bowel obstruction. I will continue to manage it nonoperatively. Change intravenous fluids to half-normal saline. Replete potassium. Clamp nasogastric tube and start the patient on clear liquid diet since abdominal x-ray is improving and patient has been passing gas. Appreciate Surgery recommendations. 2. Thrombocytopenia. He has been on lenalidomide, as well as Velcade. He does have mild bleeding in the nasogastric tube, which I think is associated it due to erosion. I will follow up with frequent complete blood count, and I will continue intravenous Protonix twice daily. Gastrointestinal team on board as well. Lenalidomide could potentially contribute to thrombocytopenia. I will appreciate Hematology recommendation. Will transfuse with a goal of keeping platelet count more than 10,000 to 20,000. 3. Essential hypertension treated with intravenous labetalol, intravenous hydralazine as needed and start his home antihypertensive medications. 4. Tobacco abuse. He is not needing a nicotine patch. DISPOSITION: I will monitor patient inside the hospital. Plan of care discussed with him and multiple family members at bedside. All of their questions have been answered. cc: Pranay Nair MD
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
[2019-08-13] MEDS: APRESOLINE PO SCH (16:36)
--- NOTE | 2019-08-13 17:26 | HEMO/ONC PROGRESS NOTE ---
DATE: 08/13/2019 SUBJECTIVE: The patient is sitting up in his bed today. He states that he did not have a good night's sleep. He stated that the nurses told him they were afraid to give him his pain medication due to his colon obstruction. The patient states he was not medicated appropriately. He is a bit agitated this morning. He states he barely got any sleep due to back pain, although he states that his abdomen is much better. Distention has relieved. He is passing a lot of gas and he is feeling a lot better in that regard. OBJECTIVE: Vital Signs: Temperature 97.8 degrees, pulse rate 70, respiratory rate 18, blood pressure 143/113, O2 saturation 100% on room air. The patient is in 2/10 abdominal pain. General: The patient does not appear to be in any acute distress. HEENT: NG tube in place, connected to wall suction. Red fluid being suctioned. Respiratory: Lung sounds are clear to auscultation. Normal respiratory effort. Cardiovascular: Normal S1, S2. Heart rate and rhythm are regular. Abdomen: Soft and nontender and nondistended. Active bowel sounds. He is passing gas. Neurological: Awake, alert, oriented x3. No focal motor deficits noted. Extremities: No lower extremity edema noted. LABORATORY: WBC 11.6, hemoglobin 9.6, hematocrit 30.1, platelet count 29,000. Sodium 148, potassium 3.2. Iron profile adequate. B12 and folate normal. Abdominal x-ray shows no evidence of small bowel obstruction. ASSESSMENT: 1. History of cord compression. The patient is continuing to complain of back pain. Due to his cord compression he does need to be medicated appropriately. He is status post laminectomy and radiation. Please continue to monitor him for any worsening of cord compression. 2. Multiple myeloma. The patient is currently being treated in our office with Velcade and Revlimid. His last dose of Velcade was on 08/10/2019. His last dose of Revlimid was prior to coming into the hospital. 3. Thrombocytopenia. We are aware of the patient's platelet level. Please transfuse for platelet count of 10,000 to 20,000 or if the patient is bleeding. We continue to evaluate. 4. Abdominal pain with nausea and vomiting. According to this morning's x-ray, there is no evidence of small bowel obstruction at this time. Gastroenterology and Surgery are following. NG tube is in place which has provided adequate decompression. The patient's abdomen is feeling much better in that regard. Continue management per Gastroenterology. Dictated by RUFINO Blount for Timothy Alexander MD cc: Timothy Alexander MD [facility]
--- NOTE | 2019-08-13 21:26 | GENERAL SURGERY PROGRESS NOTE ---
DATE: 08/13/2019 TIME: 3:40 p.m. SUBJECTIVE: Mr. Garcia is doing generally well. He is afebrile. Heart rate 70, blood pressure 191/94. He is passing flatus. His x-ray does not show any small bowel obstruction. It is nonspecific. His abdomen is soft and nontender. PLAN: The plan is to remove his NG tube. He has already been placed on clear liquids which is fine. cc: Kevin Street MD
[2019-08-14] MEDS: SODIUM CHLORIDE 0.9% INJ SCH ×2 (00:55→11:55)
[2019-08-14] MEDS: PROTONIX IV SCH ×2 (00:55→11:56)
[2019-08-14] MEDS: MORPHINE IV PRN ×2 (00:56→09:11)
[2019-08-14] MEDS: PHENERGAN IV PRN ×3 (00:56→09:12)
[2019-08-14 06:55] LABS: BASO# 0.01 X1000 (0.0-0.2); BASO% 0.1 % (0.0-0.8); EOS# 0.01 X1000 (0.0-0.7); EOS% 0.1 % (0.0-10.0); HEMATOCRIT 26.1 % (42.0-52.0); HEMOGLOBIN 8.3 g/dL (14.0-18.0); IMM GRAN# 0.08 X1000 (0.0-0.04); IMM GRAN% 0.9 % (0.0-0.5); LYMPH# 0.68 X1000 (1.2-3.4); LYMPH% 7.6 % (20.5-51.1); MCH 32.8 PG (27-31); MCHC 31.8 g/dL (33-37); MCV 103.2 FL (81-99); MONO# 1.35 X1000 (0.11-0.59); MONO% 15.1 % (1.7-9.3); NEUT# 6.82 X1000 (1.4-6.5); NEUT% 76.2 % (42.2-75.2); PLT 29 X1000 (130-400); RBC 2.53 XMIL (4.7-6.1); RDW 16.6 % (11.5-14.5); WBC 8.95 X1000 (4.8-10.8)
[2019-08-14 07:03] LABS: AGAP 12; BUN 7 mg/dL (8-22); CALCIUM 7.2 mg/dL (8.8-10.2); CHLORIDE 106 mmol/L (98-107); COSMO 280; CREATININE 0.9 mg/dL (0.7-1.2); ESTIMATED GFR > 60; GLUCOSE 83 mg/dL (70-104); MAGNESIUM 1.9 mg/dL (1.5-2.7); POTASSIUM 3.1 mmol/L (3.5-5.1); SODIUM 142 mmol/L (136-145); TCO2 24 mmol/L (25-35)
[2019-08-14 07:37] LABS: LYMPHS 2 % (21-51); MONO 13 % (1-9); SEGS 85 % (42-75)
[2019-08-14 07:39] LABS: ANISOCYTOSIS 1+
[2019-08-14 07:40] LABS: HYPOCHROM 1+
[2019-08-14] MEDS ORDERED: KLOR-CON PO ONE (07:55)
[2019-08-14] MEDS ORDERED: LYRICA PO SCH (09:00)
[2019-08-14] MEDS: NORVASC PO SCH (09:08)
[2019-08-14] MEDS: CELEXA PO SCH (09:09)
[2019-08-14] MEDS: APRESOLINE PO SCH ×3 (09:09→20:27)
[2019-08-14] MEDS: TOPROL XL PO SCH (09:09)
[2019-08-14] MEDS: THERA M PLUS PO SCH (09:09)
[2019-08-14] MEDS: VALTREX PO SCH (09:09)
[2019-08-14] MEDS: CYMBALTA PO SCH (09:10)
--- NOTE | 2019-08-14 09:51 | Diag Imaging Result Doc PS360 ---
ABDOMEN FLAT/UPRIGHT - 08/14/2019 INDICATION: Follow up SBO COMPARISON: 08/13/2019 FINDINGS: The nasogastric tube has been removed. There is slight, nonspecific gaseous distention of small and large bowel loops. There has been increase in the quantity of small bowel gas overall. There is small amount of rectal gas. No free air. There is a stable linear hyperdensity in the left lower quadrant. No significant constipation. IMPRESSION: Nasogastric tube has been removed. Mildly abnormal but nonspecific bowel gas pattern. Electronically signed by Anselmo Ferrer 08/14/2019 9:49 AM
[2019-08-14] MEDS: 1/2 NS 1,000 ML IV SCH (09:57)
[2019-08-14] MEDS: MIRALAX PO SCH (14:14)
--- NOTE | 2019-08-14 14:22 | HEMO/ONC PROGRESS NOTE ---
DATE: 08/14/2019 SUBJECTIVE: The patient is lying in bed. He was asleep this morning when I arrived. He awakes easily to my voice. He states he is doing a little better than he did yesterday. He says his pain is very minimal. He is happy to have the NG tube out. He states he has been passing a lot of gas. No BM yet. He had no events overnight. OBJECTIVE: Vital Signs: Temperature 98.1 degrees, pulse rate 65, respiratory rate 18, blood pressure 123/63, O2 saturation is 100% on room air, 0/10 pain. PHYSICAL EXAMINATION: General: He is in no acute distress. HEENT: Sclerae are anicteric. Oral mucosa is normal. Respiratory: Lungs are clear to auscultation. Normal respiratory effort. Cardiovascular: Normal S1, S2. Heart rate and rhythm are regular. Abdomen: Soft, nontender, and nondistended. Bowel sounds are heard. He is passing gas. Neurological: Awake, alert, and oriented x3. No focal motor deficits noted. Extremities: No lower extremity edema noted. LABORATORY DATA: WBCs 8.95, hemoglobin 8.3, hematocrit 26.1, platelet count is 29,000. Potassium 3.1, creatinine 0.9, calcium 7.2, magnesium 1.9. Iron profile adequate. RADIOLOGY: Abdominal x-ray shows the nasogastric tube has been removed, mildly abnormal but nonspecific bowel gas pattern. ASSESSMENT AND PLAN: 1. History of cord compression. The patient does have back pain due to a cord compression but these symptoms are stable. He is status post laminectomy and radiation. Continue to monitor him for any worsening of cord compression symptoms. 2. Multiple myeloma. The patient is currently being treated in our office for multiple myeloma with Velcade and Revlimid. We are currently holding treatments. We will follow up with him regarding his treatments outpatient in the office. 3. Profound thrombocytopenia. The patient's platelet level today is 29,000. Etiology remains unclear. We will use transfusion for a platelet count of 10,000-20,000 or if the patient has bleeding. B12 and folate normal. No splenomegaly. Medication/chemo on hold. Continue to observe. 4. Abdominal pain with nausea and vomiting. Concerning for SBO. Symptoms appear to improve some. The patient states he has some slight nausea as he is trying to advance his diet today to clear liquids. Otherwise, he denies any significant abdominal pain. He is passing gas. The nasogastric tube has been removed. Gastroenterology and surgery are following. Dictated by RUFINO Blount for Timothy Alexander MD cc: Timothy Alexander MD [facility]TD[facility]
[2019-08-14] MEDS: NEURONTIN PO SCH (16:22)
--- NOTE | 2019-08-14 18:10 | GASTROENTEROLOGY PROGRESS NOTE ---
DATE: 08/14/2019 SUBJECTIVE: Mr. Garcia is a 53-year-old male, resting in bed. He has denied any nausea, vomiting, but has complained of abdominal pain. The patient had 1 bowel movement yesterday. The patient's NG tube is out and he is currently on clear liquids. OBJECTIVE: Vital Signs: Temperature 98.1 degrees, pulse 65, respirations 18, blood pressure 123/63, oxygen saturation 100% on room air. The patient's weight is 162 pounds, BMI is 22.6 kg/m2. General: He is alert, oriented x3, and in no acute distress. HEENT: Pale conjunctivae. Mild icterus. PERRL. Neck: Supple. Lungs: Clear to auscultation in the anterior mcfarlane. Cardiovascular: Regular rate and rhythm. Abdomen: Soft, mildly distended, nontender. Hypoactive bowel sounds heard in all 4 quadrants. Extremities: No clubbing, no cyanosis, no edema. Pedal pulses 2+ present bilaterally. The patient has a right 5th toe amputated. Neurologic: He is alert, oriented x3. LABORATORY DATA: WBCs 8.95, RBC 2.53, hemoglobin 8.3, hematocrit 26.1, platelet count 29,000. Sodium 142, potassium 3.1, chloride 106, carbon dioxide 24, anion gap 12, BUN 7, creatinine 0.9, calcium is 7.2. Abdominal x-ray showed that the nasogastric tube has been removed, mildly abnormal, but nonspecific bowel gas pattern. IMPRESSION AN PLAN: 1. Small bowel obstruction. 2. Nausea and vomiting. 3. Constipation. 4. Thrombocytopenia. 5. Hypertension. 6. Tobacco abuse. 7. Multiple myeloma PLAN: Mr. Garcia is a 53-year-old male who presented to the hospital with nausea, vomiting, constipation, small bowel obstruction. GI is consulted for his small bowel obstruction. He is receiving IV fluid half-normal saline at 50 mL/hour. The patient is on GI prophylaxis 40 mg IV twice a day, for his nausea and vomiting he is antiemetics, Zofran and Phenergan, as needed and his pain is controlled by morphine. For his thrombocytopenia, patient is followed by oncologist. His abdominal x-ray on 08/13/2019 showed nonspecific abdomen. No evidence of small bowel obstruction. We will continue to monitor the patient, and we will follow the plan of care per PCP. This plan was discussed with Dr. Kidd. Please call us for any further questions or concerns. Dictated by RUFINO Bedolla for Sebastien Kidd MD Physician Attestation I have seen and examined the patient. I have discussed and reviewed the note by Lupe OJY and agree with findings and plan as documented. SBO resolved. He is tolerating PO. +BMs. No abdominal pain, N/V, rectal bleeding, or melena. He is tolerating clears. KUB does not show persistent obstruction. Anemia and thrombocytopenia are 2/2 to his MM. MTDD
[2019-08-14] MEDS: COLACE PO SCH (20:27)
--- NOTE | 2019-08-14 20:50 | GENERAL SURGERY PROGRESS NOTE ---
DATE: 08/14/2019 SUBJECTIVE: He is afebrile. His hemodynamics are good. He is comfortable. He has been passing flatus. He has tolerated his liquid satisfactorily. PLAN: The plan will be to advance to full liquids today. cc: Kevin Street MD
[2019-08-14] MEDS ORDERED: DULCOLAX PR SCH (21:00)
--- NOTE | 2019-08-14 21:47 | PROGRESS NOTE ---
DATE: 08/14/2019 SUBJECTIVE: The patient is resting comfortably in bed. He states that he was able to tolerate his clear liquid diet without any difficulty. He is passing gas but has not had a bowel movement yet. OBJECTIVE: Vital Signs: Temperature 98.2 degrees, blood pressure 101/54, heart rate 64, respirations 20, O2 saturation 97% on room air. General: This is a chronically ill-appearing elderly male lying comfortably in bed in no acute distress. Heart: S1, S2 normal. Regular rate and rhythm. Lungs: Equal air entry bilaterally. No wheezing. No rales. Abdomen: Positive bowel sounds. Soft, nontender, nondistended. Extremities: No edema. No cyanosis. No calf tenderness. Neurologic: The patient is alert and oriented x4. LABORATORY DATA: White blood cell count 8.9, hemoglobin 8.3, hematocrit 26, platelets 29,000. Sodium 142, potassium 3.1, chloride 106, CO2 24, BUN 7, creatinine 0.9, glucose 83. IMAGING: Abdominal x-ray shows a nonspecific gas pattern. ASSESSMENT AND PLAN: 1. Small bowel obstruction. This appears to have resolved. The x-ray does not show any evidence of obstruction. The patient is tolerating a clear liquid diet. We will continue to follow closely. We will also add MiraLAX and Colace to the patient's regimen to address constipation. 2. Thrombocytopenia, unchanged. The etiology is unknown at this time. We will continue to monitor the patient closely. He does not appear to be bleeding at this time. 3. Multiple myeloma status post treatment with Velcade and Revlimid. The patient's treatments are on hold at this time. The patient will follow up with Dr. Alexander as outpatient to discuss further treatment. 4. History of cord compression status post laminectomy with radiation therapy. Aware. The patient complains of paresthesias. He is on Lyrica, which he states is not helping. We will switch the patient to gabapentin and monitor his response. We will also continue with physical therapy. 5. Situational depression. Continue on Celexa. 6. Hypertension. Controlled. Continue on Toprol-XL, hydralazine and Norvasc. 7. Hypokalemia. We will replace the patient's potassium. cc: Ele Malone MD
[2019-08-15] MEDS: SODIUM CHLORIDE 0.9% INJ SCH (01:08)
[2019-08-15] MEDS: PROTONIX IV SCH ×2 (01:08→13:57)
[2019-08-15] MEDS: MORPHINE IV PRN ×2 (01:08→08:50)
[2019-08-15 07:34] LABS: BASO# 0.02 X1000 (0.0-0.2); BASO% 0.3 % (0.0-0.8); EOS# 0.08 X1000 (0.0-0.7); HEMOGLOBIN 7.9 g/dL (14.0-18.0); IMM GRAN% 1.3 % (0.0-0.5); LYMPH# 0.81 X1000 (1.2-3.4); LYMPH% 10.6 % (20.5-51.1); MCH 33.2 PG (27-31); MCHC 31.6 g/dL (33-37); MONO# 1.28 X1000 (0.11-0.59); MONO% 16.7 % (1.7-9.3); NEUT# 5.36 X1000 (1.4-6.5); NEUT% 70.1 % (42.2-75.2); PLT 65 X1000 (130-400); RBC 2.38 XMIL (4.7-6.1); WBC 7.65 X1000 (4.8-10.8)
--- NOTE | 2019-08-15 07:36 | Diag Imaging Result Doc PS360 ---
ABDOMEN FLAT/UPRIGHT - 08/15/2019 INDICATION: obstruction/constipation COMPARISON: 08/14/2019 FINDINGS: Bowels are slightly hyperinflated stable from prior. The appearance is nonspecific. There is no change. IMPRESSION: No change from prior. Electronically signed by Anselmo Ferrer 08/15/2019 7:34 AM
[2019-08-15 07:47] LABS: ESTIMATED GFR > 60
[2019-08-15 08:04] LABS: AGAP 11; BUN 5 mg/dL (8-22); CHLORIDE 106 mmol/L (98-107); COSMO 273; GLUCOSE 74 mg/dL (70-104); MAGNESIUM 1.7 mg/dL (1.5-2.7); PHOSPHORUS 1.8 mg/dL (2.7-4.5); POTASSIUM 3.5 mmol/L (3.5-5.1); SODIUM 139 mmol/L (136-145); TCO2 22 mmol/L (25-35)
[2019-08-15] MEDS ORDERED: POTASSIUM PHOSPHATE 50 MMOL in NS 250 ML IV ONE (08:13)
[2019-08-15] MEDS: CELEXA PO SCH (08:53)
[2019-08-15] MEDS: THERA M PLUS PO SCH (08:54)
[2019-08-15] MEDS: VALTREX PO SCH (08:54)
[2019-08-15] MEDS: NEURONTIN PO SCH ×2 (08:54→13:57)
[2019-08-15] MEDS: APRESOLINE PO SCH ×2 (08:54→14:04)
[2019-08-15] MEDS: MIRALAX PO SCH (08:54)
[2019-08-15] MEDS: TOPROL XL PO SCH (08:54)
[2019-08-15] MEDS: NORVASC PO SCH (08:54)
[2019-08-15] MEDS: COLACE PO SCH (08:54)
[2019-08-15] MEDS: CYMBALTA PO SCH (08:55)
[2019-08-15] MEDS ORDERED: CALCIUM GLUCONATE 1 GM in NS 50 ML IV ONE (09:28)
[2019-08-15] MEDS ORDERED: MAGNESIUM SULFATE 2 GM/S.W.I. 2 GM/50 ML IVPB IV ONE (10:00)
--- NOTE | 2019-08-15 11:07 | GENERAL SURGERY PROGRESS NOTE ---
DATE: 08/15/2019 Mr. Garcia is tolerating his liquids well. He is passing bowel movements and flatus. The plan will be to advance his diet to solids today. No further recommendations. cc: Kevin Street MD
--- NOTE | 2019-08-15 11:47 | GASTROENTEROLOGY PROGRESS NOTE ---
DATE: 08/15/2019 SUBJECTIVE: Mr. Garcia, a 53-year-old male was resting in bed. Denied any nausea, vomiting, nor abdominal pain. The patient mentioned having 3 bowel movements this morning and passing flatus. OBJECTIVE: Vital Signs: Temperature 98.1 degrees, pulse 64, respirations 18, blood pressure 102/58, oxygen saturation 98% on room air. The patient's weight is 162 pounds. BMI is 22.6 kg/m2. General: He is alert, oriented x3, and in no acute distress. HEENT: Pale conjunctivae. Mild icterus. PERRL. Neck: Supple. Lungs: Clear to auscultation in the anterior [place]. Cardiovascular: Regular rate and rhythm. Abdomen: Soft, mildly distended, nontender. Active bowel sounds heard in all 4 quadrants. Extremities: No clubbing, no cyanosis, no edema. Pedal pulses 2+ present bilaterally. Neurologic: Alert and oriented x3. LABORATORY DATA: WBCs 7.65, RBC 2.38, hemoglobin 7.9, hematocrit is 25.0, platelet count is 65,000. Sodium 139, potassium 3.5, chloride 106, carbon dioxide 22, anion gap 11, BUN 5, creatinine 1.0, glucose 74, calcium 7.0. Phosphorus 1.8, magnesium 1.7. The patient's urine culture on 08/12/2019 showed E. coli. IMAGING: Abdominal x-ray today showed no change from the prior. Abdominal x- ray yesterday showed that the NG tube was removed; mildly abnormal but nonspecific bowel gas pattern. IMPRESSION AND PLAN: Small bowel obstruction Nausea and Vomiting Constipation Thrombocytopenia Hypertension Tobacco abuse Multiple Myeloma PLAN: Mr. Garcia is a 53-year-old male and GI is following him for his small-bowel obstruction and constipation. The patient is currently on GI prophylaxis, Protonix IV twice a day. The patient's electrolytes are sodium is 139, potassium is 3.5, calcium 7.0, phosphorus 1.7, and magnesium 1.7. He is currently receiving IV potassium phosphate, IV calcium gluconate and magnesium sulfate per PCP. For his nausea and vomiting, he is receiving antiemetic Phenergan and Zofran as needed. The patient's thrombocytopenia is improving. His platelet count is 65,000. He is being followed by the oncologist. Abdominal x-ray on 08/13/2019 had shown a nonspecific abdomen and no evidence of bowel obstruction. We will continue to follow the plan of care per PCP and monitor the patient. This plan was discussed with Dr. Kidd. Please call us for any further questions or concerns. Dictated by RUFINO Bedolla for Sebastien Kidd MD Physician Attestation I have seen and examined the patient. I have discussed and reviewed the note by Lupe JOY and agree with findings and plan as documented. SBO resolved. He is tolerating PO. +BMs. No abdominal pain, N/V, rectal bleeding, or melena. Anemia and thrombocytopenia are 2/2 to his MM. He is on regular diet. Continue Miralax 17gm PO daily. Stopped colace. Bisacodyl prn. Will sign off. Please call with questions. MTDD
[2019-08-15 11:50] VITALS: BP 110/61
--- NOTE | 2019-08-15 12:20 | HEMO/ONC PROGRESS NOTE ---
DATE: 08/15/2019 SUBJECTIVE: The patient was asleep when I entered the room this morning, he awoke easily to my touch. He states he is feeling better. He appears to be doing better. No family was at bedside and he was eager to go back to sleep. OBJECTIVE: Vital Signs: Temperature 98.1 degrees, pulse rate 68, respiratory rate 18, blood pressure 110/61, O2 saturation is 99% on room air. He appeared comfortable. General: He is in no acute distress. HEENT: Sclerae are anicteric. Oral mucosa is normal. PERRLA. Cardiovascular: Normal S1, S2. Heart rate and rhythm is regular. Respiratory: Lung sounds are clear to auscultation. Normal respiratory effort. Gastrointestinal: Abdomen is soft, nontender, and nondistended. Bowel sounds are present. She is passing gas. Neurological: Awake, alert and oriented x3. No focal motor deficits noted. Extremities: No lower extremity edema noted. LABORATORY DATA: WBC is 7.65, hemoglobin 7.9, hematocrit 25, platelet count 65,000. Calcium is 7.0, phosphorus 1.8. ASSESSMENT AND PLAN: 1. History of cord compression. The patient does have back pain due to cord compression, but these symptoms are stable. He is status post laminectomy and radiation. Continue to monitor him for any worsening of cord compression symptoms. 2. Multiple myeloma. The patient is currently being treated in our office for multiple myeloma with Velcade and Revlimid, we are holding his treatment at this time. We will follow up with him in outpatient to restart after his discharge. 3. Profound thrombocytopenia. Today the patient's platelet count has increased to 65,000, 4. Abdominal pain with nausea and vomiting. This was concerning for SBO. His symptoms have improved, he is stable, he still has some slight nausea. He was seen by Surgery this morning, who advised to advance his diet as tolerated. He is passing gas as well as having bowel movements. He is feeling better in this regards. GI and Surgery are following. Dictated by RUFINO Blount for Timothy Alexander MD cc: Timothy Alexander MD [facility]
--- NOTE | 2019-08-28 14:35 | DISCHARGE SUMMARY ---
ADMISSION DATE: 08/12/2019 DISCHARGE DATE: 08/15/2019 FINAL DISCHARGE DIAGNOSIS: 1. Small bowel obstruction. 2. Multiple myeloma, status post treatment with Velcade and Revlimid. 3. Thrombocytopenia. 4. Situational depression. 5. Hypertension. 6. History of cord compression status post laminectomy with radiation therapy. CONSULTATIONS: 1. Oncology consultation with Dr. Alexander. 2. GI consultation with Dr. Kidd. 3. General Surgery consultation with Dr. Street. IMAGING: CT of the abdomen and pelvis performed on 08/12/2019 that revealed multiple distended loops of small bowel suggesting a high-grade mechanical obstruction. Multiple lytic bone lesions consistent with multiple myeloma. Subcentimeter nodule in the lingula that is nonspecific. HOSPITAL COURSE: Mr. Garcia is a 53-year-old male with a history of multiple myeloma, status post chemotherapy and a history of cord compression status post laminectomy and radiation therapy, who presented to the ER with a chief complaint of nausea, vomiting, and abdominal pain as well as decreased appetite. On admission, a CT of the abdomen and pelvis was done that revealed high- grade small bowel obstruction. The patient was admitted to the hospitalist service. Gastroenterology, General Surgery, and Oncology were consulted. The patient was placed on bowel rest and an NG tube was placed for decompression. It was recommended by General Surgery to be conservative and monitor the patient with serial abdominal x-rays. Over the course of the hospitalization, the patient's obstruction improved. The patient also started passing flatus and eventually started having bowel movements. The patient's NG tube was removed and the patient was started on a clear liquid diet which he tolerated without any difficulty. The diet was then advanced slowly to eventually a GI soft diet. The patient did complain of neuropathy in his legs and so the Lyrica was discontinued. The patient was started on gabapentin. The patient also had pretty severe constipation and was started on a bowel regimen during this hospitalization and he was advised to continue on the bowel regimen even after discharge, especially if he is going to be on long-acting pain medication. The patient continued to improve clinically and was cleared for discharge home on 08/15/2019. DISCHARGE MEDICATIONS: 1. Colace 100 mg oral twice a day. 2. Neurontin 100 mg oral 2 times a day. 3. MiraLAX 17 g oral daily. 4. Aspirin 81 mg p.o. daily. 5. Hydralazine 50 mg oral 3 times a day. 6. Toprol-XL 50 mg oral daily. 7. Aldactone 25 mg oral daily. 8. Norvasc 10 mg p.o. daily. 9. Cymbalta 30 mg p.o. daily. 10. Multivitamin 1 tab oral daily. 11. Prilosec 20 mg p.o. daily. 12. Zofran 4 mg oral every 6 hours p.r.n. for nausea. 13. [place] 10/325 one tab oral every 6 hours p.r.n. for pain. 14. Celexa 20 mg p.o. daily. 15. Remeron 15 mg oral daily. 16. Valtrex 500 mg p.o. daily. DISCHARGE DIET: Low-sodium diet. ACTIVITY: As tolerated. FOLLOWUP INSTRUCTIONS: The patient will need to follow up with Dr. Alexander as scheduled by his clinic. cc: Ele Malone MD
== END 2019-08-15 15:46 | disposition home or self-care (01) | DRG 389 ==
LOC: P.ED 02:45 → 4N 02:46 → SUATTDRO 02:46
PROVIDERS: ATTEND Internal Medicine